=== PATIENT | male | born 1995 | race Caucasian/White ===

== ENCOUNTER 2020-12-26 08:31 | Outpatient (CLI) | payer OTHER ==
[2020-12-26 09:33] VITALS: BP 146/100
--- NOTE | 2020-12-26 09:33 | SLEEP CARE CONSULTATION ---
Information from patient questionnaire entered by Kathi Abdul. I have reviewed and concur with the information entered by Kathi Abdul. This document represents the service I personally performed and the decisions made by me, Chantelle Baig ARNP. History of Present Illness Service Date and Time: 12/26/2020 0831 Reason for Visit: New patient Chief Complaint: reports: Unrefreshed sleep, Snoring, Excessive daytime sleepiness, Observed pauses in breathing, Fatigue Date of Onset: 1 year Usual bedtime: 9-10 pm Time it takes to fall asleep: 15 minutes Snores at night: Yes Observed to quit breathing while asleep: Yes Number of times waking at night: 2 Reasons for waking at night: reports: Bathroom, Other (roll over on side, unknown reason) Toss, Turn, or Twitch while sleeping: Yes Recalls having dreams: No (not for at least 3 years) Usually gets out of bed at: 6 - 6:30 am Feels refreshed in the morning: No Morning headache: Yes (resolves afer drinking water/being awake for hours) Sleepy or fatigued during the day: Yes Ever fallen asleep while driving: No Takes day naps: Yes (twice a week for 2-3 hours) Dreams during day naps: No Prior sleep studies: No Additional HPI information: I had the pleasure of seeing ARGELIA AKHTAR today regarding the possibility of him having a sleep disorder. His current complaints are excessive daytime sleepiness, fatigue, observed pauses in breathing, snoring and unrefreshed sleep. He has been told by many people that he has pauses in breathing and that he snores very loudly. He is gasping after the pauses when asleep. He states his mother has told him he did this since he was an . He states in the last year he is not feeling rested in the morning and more sleepy during the day. He feels like he is not getting enough oxygen. He is waking up with hiccups once a week for the last month. He is waking up with headaches 2-3 times a week. 5/10 pain for the headache. They last until he drinks water for about an hour in the morning. He wakes up feeling dehydrated. He wakes up with a dry mouth about every other day. He has a grandparent and an uncle who both have sleep apnea and are treated. He did sustain an injury to his nose about 2 years ago. He was on a ship and tripped causing him to his nose on a railing. It did bleed a lot but he did not have it checked out. Since that time his nose seems more crooked and he has difficulty breathing through the right side. He feels like there might be a hole in the septum. - Parasomnia Symptoms Ever been unable to move upon waking from sleep: No Walks in sleep: No (unsure) Talks in sleep: No (unsure) Ever acted out dreams in sleep: No Ever felt weak in the knees when startled or emotional: No Bothered by creepy, crawly, restless sensations in legs: No Problems with memory or concentration: Yes (lack of memory, little things (misplace/forget) daily) Subjective Initial [place] Sleepiness Scale score: 10 (in 2020) Social History The patient's occupation is a Active . Patient is Single and lives in [place]. Have you smoked in the past 12 months: No Alcohol use: No Caffeine use: Yes Caffeine amount and frequency: 1 - 2 drinks weekly Family History Family history of sleep disordered breathing: Yes Family Hx Sleep Apnea: Grandparent: Snoring (uncle), Sleep apnea - Treated (uncle), Other: Snoring, Sleep apnea - Treated Allergies and Home Medications Drug allergies reviewed: Yes (NKDA) Home medication list reviewed: Yes (multivitamin) Review of Systems Cardiovascular: denies: high blood pressure Respiratory: reports: shortness of breath Gastrointestinal: denies: heartburn Neurological: reports: headaches Psychiatric: reports: anxiety Ear/Nose/Throat: reports: injury to nose (2 years ago, tripped and hit railing; bled a lot/swelling; did not get looked at), tonsillectomy, wisdom teeth removed Musculoskeletal: reports: joint pain Physical Exam Blood Pressure: 146/100 (feeling anxious) Cuff size: wrist Heart Rate: 86 O2 Saturation: 96 Height: 6 ft Weight: 248 lb (with boots/fatigues on) Body Mass Index: 33.6 BMI Classification: Obese Neck circumference: 16.25 (inches) Nostrils: patent to airflow Mouth and throat: narrow oropharynx Soft palate: long Hard palate: normal Uvula: normal Uvula visualization: 50% Mallampati Class II Tongue: normal in size Tonsils: absent bilaterally Neck: normal w/o lymphadenopathy or thyromegaly Heart: regular rate and rhythm Lungs: clear bilaterally Impression and Plan 1. Suspected Obstructive Sleep Apnea-Hypopnea Syndrome, as suggested by a history of loud and irregular snoring, observed cessation of breath while asleep, gasping or choking in sleep, morning headache, unrefreshed sleep, cognitive impairment, and excessive daytime sleepiness. Narrow oropharynx and obesity are common predisposing factors for obstructive sleep apnea-hypopnea syndrome. I recommend proceeding to polysomnography to confirm the diagnosis and to assess severity. If the patient has significant sleep disordered breathing, a manual CPAP titration study will also be performed to find the optimal treatment pressure. I informed the patient of what the sleep studies involve and after some discussion, obtained agreement to proceed. The pathophysiology of obstructive sleep apnea-hypopnea syndrome was discussed with the patient and health risks of cardiovascular and cerebrovascular disease if not treated. AAS brochure for obstructive sleep apnea-hypopnea syndrome given and reviewed. Risks of drowsy driving discussed in detail and patient advised to avoid long distance driving and to last puller at the first sign of drowsiness. Patient agreed to plan. * Schedule polysomnography +- manual CPAP titration study and return in 1-2 weeks after the study to discuss result and initiate therapy. * Avoid long distance driving or driving when feeling sleepy. * Avoid alcohol, sedative and muscle relaxant around bedtime. * Attempt to lose weight. * Review instructions provided by trained office staff on how to prepare for the sleep study. * Return for follow-up after sleep study completed. Counseling Topics: Weight loss health impact Visit Type: In Office Time Spent with Patient (minutes): 32 Provider Statement: I spent 100% of the Face to Face Visit with the patient with greater than 50% spent counseling the patient and coordination of care.
== END 2020-12-26 08:32 | disposition home or self-care (01) ==
LOC: SC 08:31
PROVIDERS: ATTEND Nurse Practitioner Family
DX: G47.10 Hypersomnia, unspecified (principal); R06.83 Snoring; R06.81 Apnea, not elsewhere classified; R41.89 Other symptoms and signs involving cognitive functions and awareness; G47.8 Other sleep disorders; E66.9 Obesity, unspecified; Z68.33 Body mass index [BMI] 33.0-33.9, adult
CPT/HCPCS: 99203; 99212

== ENCOUNTER 2021-01-23 09:00 | Outpatient (CLI) | payer OTHER ==
[2021-01-23] MEDS ORDERED: ALBUTEROL 1 PUFF INH STA (11:08)
== END 2021-01-23 09:01 | disposition home or self-care (01) ==
LOC: RT 09:00
PROVIDERS: ATTEND Family Medicine
DX: R06.00 Dyspnea, unspecified (principal)
CPT/HCPCS: 94060

== ENCOUNTER 2021-02-01 08:26 | Outpatient (CLI) | payer OTHER ==
--- NOTE | 2021-02-01 09:08 | SLEEP CARE CONSULTATION ---
Information from patient questionnaire entered by Lupe Evans. I have reviewed and concur with the information entered by Lupe Evans. This document represents the service I personally performed and the decisions made by me, Chantelle Baig ARNP. History of Present Illness Service Date and Time: 02/01/2021825 Initial [place] Sleepiness Scale score: 10 (in 2020) Current [place] Sleepiness Scale score: 2 Additional HPI information: ARGELIA AKHTAR returns for follow up and results of the recently performed polysomnography at [facility]. I explained the pathophysiology behind obstructive sleep apnea. We then spent quite a bit of time discussing different treatment options. For mild obstructive sleep apnea, surgery and oral appliance are alternatives to nasal CPAP therapy but in moderate or severe cases, nasal CPAP is the most effective and reliable treatment. Because apnea is primarily in supine position, then positional management therapy could be effective. Methods discussed such as positioning with pillows, using a T-shirt with tennis balls in the back to keep him off his back. I reviewed the impact of weight changes on sleep apnea and strongly recommended losing weight. After some discussion, the patient opted to go with the nasal CPAP therapy. Nasal autoCPAP set at 4-15 cmH20 will be ordered with rationale explained. A manual titration study will be ordered if unable to find optimal pressure with office adjustments. I explained how CPAP machine works with sample devices [employer] Dreamstation and [id number] and what to expect when using the machine. Using CPAP every night in order to get used to it was emphasized. Patient advised to put CPAP mask on before getting into bed so as not to fall asleep without CPAP. To assist acclimation to CPAP use, it could also be used for a short time during day while reading or watching TV. The patient was instructed to call the CPAP supplier to discuss any mechanical problem that may occur. If the mask given is uncomfortable or is difficult to keep on through the night even with adjustment, contact the CPAP supplier as many will replace with another mask style if notified before 30 days. If snoring or perceives is not getting enough air or too much air from the machine, notify this office. AAS patient education PAP tips reviewed and given to patient. Patient does not drink alcohol. Patient was cautioned about risks of drowsy driving until sleepiness symptoms resolve. Sleep Study - Results Type of Sleep Study: Polysomnography Prior sleep studies: Yes Year and Where: 12/2020 [facility] Polysomnography/Home Sleep Study results: Interpretation: In-laboratory Attended Nocturnal Polysomnogrnphy. The patient had minimally reduced sleep efficiency. The sleep architecture was abnormal for sleep fragmentation and reduced amount time spent in slow wave sleep (N3). Respiratory monitoring showed severe obstructive sleep apnea-hypopnea (AHi"" 57.3) associated with frequent mousals, oxyhemoglobin desaturation and mild hypoxia (vilma oxygen saturation of 81.0%). The respiratory events occurred almost exclusively during supine sleep. Snoring was light to loud in intensity. There was no periodic leg movement of sleep. Cardiac rhythm was normal sinus rhythm. No abnormal behavior (parasomnia) observed during the night. Recommendations: 1. The patient has severe obstructive sleep apnea and hypopnea - ICD 047.33. Positive airway pressure therapy is indicated. Other treatment options such as palatal surgery and oral appliance may be considered but are unlikely to be effective given the severity of the sleep disordered breathing. A manual positive airway pressure titration study is recommended to find the optimal treatment mode and pressure setting. With BMI of 33.6 Kg/M2, weight loss is also recommended. Allergies and Home Medications Home medication list reviewed: Yes (no changes) Review of Systems Review of systems same as previous: Yes (no changes) Physical Exam Heart Rate: 84 O2 Saturation: 98 Height: 6 ft Weight: 249 lb (with boots/fatigues on) Body Mass Index: 33.7 BMI Classification: Obese Impression and Plan 1. Obstructive Sleep Apnea-Hypopnea Syndrome, severe, with lowest oxygen saturation of 81%. Obviously this is the cause of the patients symptoms of unrefreshed sleep, and excessive daytime sleepiness. Positive pressure therapy could benefit his overall health and reduce cardiovascular and cerebrovascular adverse events. As mentioned above, the patient will be started on nasal autoCPAP therapy with pressure set at 4-15 cmH2O. A manual titration study will be completed if unable to find optimal treatment pressure with office adjustments. Compliance guidelines also reviewed. A copy of compliance guidelines will be given for reference at check out. Because the apnea is more severe supine, I instructed to avoid sleeping supine using pillow positioning until able to start CPAP use. * Nasal auto CPAP therapy, pressure at 4-15 cm H2O. * Attempt to lose weight. * Avoid alcohol consumption near bedtime. * Avoid supine sleep until using CPAP. * The patient is again cautioned about driving until sleepiness completely resolves. * Return one month after CPAP obtained. I will assess response to therapy and compliance at that time. Counseling Topics: Weight loss health impact Visit Type: In Office Time Spent with Patient (minutes): 20 Provider Statement: I spent 100% of the Face to Face Visit with the patient with greater than 50% spent counseling the patient and coordination of care.
== END 2021-02-01 08:27 | disposition home or self-care (01) ==
LOC: SC 08:26
PROVIDERS: ATTEND Nurse Practitioner Family
DX: G47.33 Obstructive sleep apnea (adult) (pediatric) (principal)
CPT/HCPCS: 99212; 99213

== ENCOUNTER 2021-05-28 09:10 | Outpatient (CLI) | payer OTHER ==
[2021-05-28 10:20] VITALS: BP 148/110
--- NOTE | 2021-05-28 10:20 | SLEEP CARE CONSULTATION ---
Information from patient questionnaire entered by Doug Hunter MA. I have reviewed and concur with the information entered by Doug Hunter MA. This document represents the service I personally performed and the decisions made by , Chantelle Baig ARNP. History of Present Illness Service Date and Time: 05/28/2021 0910 Previous diagnosis: Severe, Obstructive Sleep Apnea-Hypopnea Syndrome AHI: 57.3 Reason for follow up: first compliance (04/08 START UP DATE, RESMED,), other (4 MONTHS) Equipment type: CPAP Equipment obtained from: [facility] (got initial supplies) Mask style: Full face Mask brand: Resmed Backup mask available: No (other size mask; will keep old mask when replaced) Last cushion change: 1 month Prior sleep studies: Yes Year and Where: 12/2020 [facility] Type of Sleep Study: Polysomnography HPI additional information: ARGELIA AKHTAR was diagnosed to have severe, AHI 57.3, obstructive sleep apnea- hypopnea syndrome and returned today for CPAP therapy first compliance follow- up. Sleep Study - Results Type of Sleep Study: Polysomnography Prior sleep studies: Yes Year and Where: 12/2020 [facility] CPAP Compliance Data - Data Reviewed with Patient Average duration of nightly device use: 6 HOURS 13 MINUTES Compliance rate %: 80 Current pressure setting (cmH2O): 4-20 (median 7.4, avg 10.8 and max 12.1) Average residual AHI: 1.5 Central apnea: .2 Obstructive apnea: .7 Average large leak: 16.8 Subjective Missed days of use due to: reports: illness (Covid) Patient concerns: reports: condensation in mask/hose, other (TROUBLE BREATHING, LACK OF O2, FEELS LIKE HE IS BREATHING THRU A STRAW TO BREATH.). denies: aerophagia, mask discomfort, air blowing in eyes, mask leak noise, nasal congestion, dry mouth, nose, throat, epistaxis Observed to snore while using device: No Current pressure setting perceived as: comfortable On therapy, patient: reports: sleeping better (only in first couple weeks, now not as much ), more rested overall (at first but not in last week or so). denies: drowsiness while driving Initial [place] Sleepiness Scale score: 10 (in 2020) Current [place] Sleepiness Scale score: 1 (2021) Allergies and Home Medications Known drug allergies: No Drug allergies reviewed: Yes Home medication list reviewed: Yes (ALBUTEROL FOR COVID) Allergy and home medication list: Albuterol Claritin Singular Physical Exam Vital signs obtained and entered by: ANDERSON CAVAZOS Blood Pressure: 148/110 (RIGHT, 90 PULSE) Heart Rate: 84 O2 Saturation: 97 Height: 6 ft Weight: 240 lb (WITH CLOTHES) Body Mass Index: 32.5 BMI Classification: Obese Impression and Plan 1. Obstructive Sleep Apnea-Hypopnea Syndrome, severe, with good treatment compliance and good apnea control. Patient felt some improvement of how rested he felt at first but in the last couple weeks he has been having more problems sleeping. He had Covid 3 weeks ago and had difficulty wearing the mask because of nasal congestion and feeling like he could not get any oxygen. He feels like it is hard to breathe out more than in when using the mask and sometimes he has difficulty breathing because the air feels so "heavy". He did reduce his humidity and heated hose with some improvement in the feeling of heaviness. I will increase his EPR to reduce some pressure for exhalation. I will adjust his pressure to reflect the pressures he is using to 10-12 cmH2O. He was advise to call if this change is uncomfortable or if his air hunger continues. Patient states he is trying to lose weight but has not been losing anything right now. I advised him to try to lose weight to improve his overall health and to reduce apneas. Patient's apnea severity and rationale for treatment to reduce apnea, improve sleep quality and reduce cardiovascular and cerebrovascular events was reviewed. 2. Elevated blood pressure, unspecified. Patient states he does not have high blood pressure and was just running around, very busy this morning prior to visit. He has not had his albuterol inhaler today. He denies any chest pain, shortness of breath or headaches today. He will monitor and follow up with PCP as needed. * Increase EPR to 3 on his CPAP for patient comfort * Change auto CPAP pressure to 10-12 cmH2O * Notify me if snoring with mask or feeling that the pressure is too much or too little * Attempt to lose weight * Call this office if any problems using CPAP * Return for follow up in 1-2 months, or sooner if concerns arise Counseling Topics: Spare mask, Weight loss health impact Visit Type: In Office Time Spent with Patient (minutes): 21 Provider Statement: I spent 100% of the Face to Face Visit with the patient with greater than 50% spent counseling the patient and coordination of care.
== END 2021-05-28 09:11 | disposition home or self-care (01) ==
LOC: SC 09:10
PROVIDERS: ATTEND Nurse Practitioner Family
DX: G47.33 Obstructive sleep apnea (adult) (pediatric) (principal); R03.0 Elevated blood-pressure reading, without diagnosis of hypertension; E66.9 Obesity, unspecified; Z68.32 Body mass index [BMI] 32.0-32.9, adult
CPT/HCPCS: 99212; 99213